=== PATIENT | female | born 1990 ===

== ENCOUNTER 2017-11-26 20:13 | Emergency (ER) | payer OTHER ==
[2017-11-26 20:22] VITALS: TEMP 97.9
[2017-11-26] MEDS ORDERED: ONDANSETRON DISINTEGRATING 4 MG TAB PO ONE (20:44)
--- NOTE | 2017-11-26 20:44 | EDPHY ---
H & P Stated Complaint: emisis x2, diarrhea, body aches, fever Time Seen by Provider: 11/26/17 20:27 HPI/ROS: CHIEF COMPLAINT: Vomiting and diarrhea History by patient HISTORY OF PRESENT ILLNESS: 19-year-old woman presents complaining of less than 24 hr of fatigue, malaise, vomiting, watery nonbloody diarrhea and upper abdominal pain. She describes the pain as feeling like she needs to vomit. She had a subjective fever at home. Patient states that she had a few glasses of wine last night when she woke up this morning she thought she was hung over but she got progressively with worse throughout the day. She has vomited and had diarrhea more times than she can count. She is on oral control pills and does not think she is . She denies any urinary symptoms. There is no known ill contacts over some colleagues had the flu a few weeks ago. She tried taking Tylenol a couple hours ago. She has been able to drink some water and ice and heat some potatoes and an orange. REVIEW OF SYSTEMS: As in HPI, and all other systems reviewed and are negative Source: Patient - Personal History LMP (Females 10-55): 22-28 Days Ago - Medical/Surgical History Other PMH: none - Physical Exam Exam: General Appearance: Alert, nontoxic-appearing, hyperventilating. Eyes: Pupils equal and round, extraocular movements intact, no pallor or injection. Mouth: Mucous membranes moist. Pharynx clear Respiratory: Normal, effort, lungs are clear to auscultation. No wheezes, rales or rhonchi. Cardiovascular: Regular rate and rhythm. S1, S2, no murmurs, gallops or rubs appreciated Gastrointestinal: bowel sounds present, Abdomen is soft and mildly distended and nontender, no masses Back: No CVA tenderness, no bony tenderness Neurological: Awake, alert and oriented x 3, no pronator drift, normal gait, no pronator drift Skin: Warm and dry, no rashes. Musculoskeletal: No deformities or tenderness. Extremities: full range of motion, no edema Psychiatric: Patient has normal affect, there is no agitation. Constitutional: Initial Vital Signs Temperature (C) 36.6 C 11/26/17 20:16 Heart Rate 96 11/26/17 20:16 Respiratory Rate 22 H 11/26/17 20:16 Blood Pressure 109/72 11/26/17 20:16 O2 Sat (%) 98 11/26/17 20:16 O2 Delivery Mode Room Air Allergies/Adverse Reactions: No Known Allergies Allergy (Unverified 11/26/17 20:23) Home Medications: Medication Instructions Recorded Bcp 11/26/17 Medical Decision Making ED Course/Re-evaluation: 19-year-old woman presents complaining of body aches, vomiting and diarrhea. There is no evidence of significant dehydration. Patient was given oral Zofran in the emergency department after which she was feeling somewhat better and was able to orally rehydrate, taking fluids without difficulty. test was negative. We discussed home care and return precautions. Patient is discharged home in stable condition with prepack of Zofran for ongoing symptomatic relief. - Data Points Laboratory Results: 11/26/17 21:40 Urine Test NEGATIVE Medications Given: Discontinued Medications Ibuprofen (Motrin) 600 mg PO EDNOW ONE Stop: 11/26/17 21:08 Last Admin: 11/26/17 21:11 Dose: 600 mg Ondansetron HCl (Zofran Odt) 4 mg PO EDNOW ONE Stop: 11/26/17 20:45 Last Admin: 11/26/17 20:45 Dose: 4 mg Ondansetron HCl (Zofran Odt 4 Mg Prepack#2) 1 btl TAKEHOME EDNOW ONE Stop: 11/26/17 22:05 Last Admin: 11/26/17 22:10 Dose: 1 btl Departure - Departure Disposition: Home, Routine, Self-Care Clinical Impression: Nausea vomiting and diarrhea Condition: Good Instructions: Ondansetron (By mouth), Gastroenteritis (ED) Additional Instructions: You were seen by Dr. Helga España today. Drink plenty of fluids. Eat you feel like eating. Take Zofran as needed for nausea and vomiting. Take Tylenol and/or ibuprofen as needed for aches and pains and fever. Return for any worsening or new concerns. Referrals: NONE *PRIMARY CARE P,. [Unknown] - As per Instructions
[2017-11-26] MEDS ORDERED: IBUPROFEN 600 MG TAB PO ONE (21:07)
[2017-11-26] MEDS ORDERED: ONDANSETRON 4MG PREPACK#2 BTL TAKEHOME ONE (22:04)
[2017-11-26 22:16] VITALS: BP 122/78; PULSE 90; RESP 16; O2SAT 95
== END 2017-11-26 22:12 | disposition home or self-care (01) ==
LOC: CED 20:13
DX: R19.7 Diarrhea, unspecified (principal); R11.2 Nausea with vomiting, unspecified
CPT/HCPCS: 81025-PO